=== PATIENT | female | born 1970 | race Caucasian/White ===

== ENCOUNTER 2025-07-21 18:08 | Emergency (ER) | payer OTHER ==
[~2025-07-21] VITALS: Ht 167.6 cm; Wt 113.0 kg
[2025-07-21 18:11] VITALS: O2SAT 97
[2025-07-21 20:33] LABS: BASOPHILS % 0.9 % (0.0-2.0); EOSINOPHILS % 3.9 % (0.0-5.0); HEMATOCRIT. 39.5 % (36.0-48.0); HEMOGLOBIN. 13.0 g/dL (12.0-16.0); LYMPHOCYTES % 33.9 % (20.0-50.0); MEAN PLATELET VOLUME 7.5 fl (7.4-10.4); MONOCYTES % 9.4 % (2.0-8.0); NEUTROPHILS % 51.9 % (40.0-76.0); PLATELET 243 x1000/uL (130-400); RED BLOOD CELL COUNT 4.73 mill/uL (4.2-5.4); RED CELL DISTRIBUTION WIDTH 15.2 % (11.6-14.6)
[2025-07-21 20:47] LABS: TROPONIN I HIGH SENSITIVITY < 4 ng/L (3.0-34)
[2025-07-21 20:50] LABS: CREATININE 0.7 mg/dL (0.6-1.0); UREA NITROGEN BLOOD 10 mg/dL (9-23)
[2025-07-21 20:52] LABS: ASPARTATE AMINOTRANSFERASE 28 IU/L (<34); BILIRUBIN DIRECT 0.2 mg/dL (<=3.0); BILIRUBIN TOTAL 0.7 mg/dL (0.1-1.0); PROTEIN TOTAL 5.8 g/dL (6.0-8.3)
[2025-07-21 21:45] VITALS: BP 110/70; PULSE 97; RESP 14; TEMP 36.7; O2SAT 95
[2025-07-21] MEDS: IBUPROFEN 800MG TABLET PO SCH (22:12)
== END 2025-07-21 22:49 | disposition home or self-care (01) ==
LOC: ER 18:08 → CMPBEDREQ 07-22 07:52
DX: R07.89 Other chest pain (principal); E11.9 Type 2 diabetes mellitus without complications; I10 Essential (primary) hypertension; J45.909 Unspecified asthma, uncomplicated; R06.02 Shortness of breath; Z88.5 Allergy status to narcotic agent
CPT/HCPCS: 36415; 71045; 80048; 80076; 83880; 84484; 85025; 93005; 99285